=== PATIENT | female | born 1995 | race Caucasian/White ===

== ENCOUNTER 2017-05-03 08:46 | Day surgery (SDC) | payer BC ==
[~2017-05-03] VITALS: Ht 160 cm; Wt 81.7 kg
[~2017-05-03 08:46] MED LIST: ASPIR 8181 M1 PO; ASPIRIN EC325 MG PO; Chromagen, Feogen, M PO; GABAPENTIN300 MG PO; Motrin PO; NAPROSYN500 MG PO; NEXPLANON68 MG SC; PERCOCET 5/31 TABLET PO; PRENATAL COMPL1 EACH PO; RANITIDINE HCL150 MG PO; VENTOLIN HFA18 GM IH; [UNRECOGNIZED DRUG - REMARK]
== END 2017-05-03 10:23 | disposition home or self-care (01) ==
LOC: PAIN 08:46
PROC: 015B3ZZ Destruction of Lumbar Nerve, Percutaneous Approach (ICD-10-PCS; principal; 2017-05-03)
DX: M47.816 Spondylosis without myelopathy or radiculopathy, lumbar region (principal); M47.896 Other spondylosis, lumbar region; M53.3 Sacrococcygeal disorders, not elsewhere classified; M41.9 Scoliosis, unspecified; M62.838 Other muscle spasm; J45.909 Unspecified asthma, uncomplicated; E72.12 Methylenetetrahydrofolate reductase deficiency; Q24.9 Congenital malformation of heart, unspecified; Z88.5 Allergy status to narcotic agent; Z91.040 Latex allergy status
CPT/HCPCS: J1030; J2250; J3010; S0020

== ENCOUNTER 2017-05-10 08:25 | Day surgery (SDC) | payer MEDICARE ==
[~2017-05-10] VITALS: Ht 160 cm; Wt 84.8 kg
== END 2017-05-10 10:00 | disposition home or self-care (01) ==
LOC: PAIN 08:25 → SDC 09:15 → PAIN 09:15
DX: M47.816 Spondylosis without myelopathy or radiculopathy, lumbar region (principal); M54.5 Low back pain; M53.3 Sacrococcygeal disorders, not elsewhere classified; M41.9 Scoliosis, unspecified; J45.909 Unspecified asthma, uncomplicated; Z79.82 Long term (current) use of aspirin; Z86.79 Personal history of other diseases of the circulatory system; Z86.73 Personal history of transient ischemic attack (TIA), and cerebral infarction without residual deficits; Z79.891 Long term (current) use of opiate analgesic
CPT/HCPCS: J1030; J2250; J3010; S0020